=== PATIENT | female | born 1995 | race Two or more races ===

== ENCOUNTER → 2024-08-29 | Outpatient (REF) | payer OTHER | LOC: M PLALAB 09:33 | PROVIDERS: ATTEND Specialist | DX: Z12.4 Encounter for screening for malignant neoplasm of cervix (principal); R87.5 Abnormal microbiological findings in specimens from female genital organs ==

== ENCOUNTER → 2025-03-18 | Outpatient (CLI) | payer OTHER | LOC: M WHC 12:16 | PROVIDERS: ATTEND Advanced Practice Midwife | DX: O20.9 Hemorrhage in early pregnancy, unspecified (principal) ==

== ENCOUNTER → 2025-03-27 | Outpatient (REF) | payer OTHER | LOC: M PLALAB 13:44 | PROVIDERS: ATTEND Nurse Practitioner Family | DX: Z53.9 Procedure and treatment not carried out, unspecified reason (principal) ==

== ENCOUNTER → 2025-05-27 | Outpatient (REF) | payer OTHER ==
[2025-05-27 14:59] LABS: Trichomonas vaginalis (AMP) NOT DETECTED (NEGATIVE)
[2025-05-27 15:23] LABS: GC DNA AMPLIFICATION NEGATIVE (NEGATIVE)
== END ==
LOC: M SFHCWAGY 12:59
PROVIDERS: ATTEND Obstetrics & Gynecology
DX: Z34.92 Encounter for supervision of normal pregnancy, unspecified, second trimester (principal)

== ENCOUNTER → 2025-07-03 | Outpatient (CLI) | payer OTHER | LOC: M RAD 14:34 | PROVIDERS: ATTEND Obstetrics & Gynecology | DX: Z34.82 Encounter for supervision of other normal pregnancy, second trimester (principal); Z3A.21 21 weeks gestation of pregnancy ==

== ENCOUNTER → 2025-08-28 | Outpatient (CLI) | payer OTHER ==
[2025-08-28 14:42] LABS: PLATELET COUNT, AUTOMATED 269 10^3/uL (150-450)
[2025-08-28 16:00] LABS: Trichomonas vaginalis (AMP) NOT DETECTED (NEGATIVE)
[2025-08-28 16:10] LABS: GLUCOSE CHALLENGE TEST 1 HOUR 80 MG/DL (LESS THAN 140)
[2025-08-28 16:23] LABS: GC DNA AMPLIFICATION NEGATIVE (NEGATIVE)
[2025-08-28 16:46] LABS: HIV 1&2 SCREEN NEGATIVE (NEGATIVE)
[2025-08-28 16:53] LABS: HEPATITIS C VIRUS ABY INDEX 0.03 INDEX (<0.8)
== END ==
LOC: M PLALAB 10:49
PROVIDERS: ATTEND Obstetrics & Gynecology
DX: Z34.80 Encounter for supervision of other normal pregnancy, unspecified trimester (principal)

== ENCOUNTER → 2025-10-14 | Outpatient (CLI) | payer OTHER | LOC: M RAD 16:03 | PROVIDERS: ATTEND Nurse Practitioner Family | DX: O40.3XX0 Polyhydramnios, third trimester, not applicable or unspecified (principal); Z3A.37 37 weeks gestation of pregnancy ==

== ENCOUNTER → 2025-10-14 | Outpatient (CLI) | payer OTHER | LOC: M WHC 15:50 | PROVIDERS: ATTEND Nurse Practitioner Family | DX: O40.9XX0 Polyhydramnios, unspecified trimester, not applicable or unspecified (principal); Z53.9 Procedure and treatment not carried out, unspecified reason ==

== ENCOUNTER → 2025-10-14 | Outpatient (REF) | payer OTHER | LOC: M SFHCWAGY 10:27 | PROVIDERS: ATTEND Nurse Practitioner Family | DX: Z34.93 Encounter for supervision of normal pregnancy, unspecified, third trimester (principal); Z3A.36 36 weeks gestation of pregnancy ==

== ENCOUNTER → 2025-10-23 | Outpatient (CLI) | payer OTHER ==
[~2025-10-23] MED LIST: ACET32TAB PO; IBUP600T42 PO; PRENTAB9 PO
== END ==
LOC: M WHC 06:40
PROVIDERS: ATTEND Nurse Practitioner Family
DX: O40.3XX0 Polyhydramnios, third trimester, not applicable or unspecified (principal); Z3A.00 Weeks of gestation of pregnancy not specified

== ENCOUNTER 2025-10-29 18:23 | Inpatient (IN) | payer OTHER ==
[2025-10-29] VITALS (7 sets, daily range): BP systolic 104–125; BP diastolic 55–80
[~2025-10-29] VITALS: Ht 165.1 cm; Wt 97.2 kg
[2025-10-29] MEDS ORDERED: PRENTAB9 PO (18:48)
[2025-10-29] MEDS ORDERED: HOME MED LIST COMPLETE! XX SCH (18:50)
[2025-10-29] MEDS ORDERED: OXYTOCIN DRIP 30 UNITS in IV 1 EA IV PRN (19:40)
[2025-10-29] MEDS ORDERED: LIDOCAINE 1% MDV 20 ML VIAL INFIL PRN (19:40)
[2025-10-29] MEDS: PENICILLIN G POTASSIUM 5 MU IV 5 MU in DEXTROSE 5% (D5W) MINI-BAG PLU 100 ML IV STA (19:54)
[2025-10-29] MEDS: LR 1,000 ML IV SCH (19:54)
[2025-10-29 20:07] LABS: PLATELET COUNT, AUTOMATED 276 10^3/uL (150-450)
[2025-10-29 20:50] LABS: HIV 1&2 SCREEN NEGATIVE (NEGATIVE)
[2025-10-29 20:58] LABS: HEPATITIS C VIRUS ABY INDEX < 0.02 INDEX (<0.8)
[2025-10-29] MEDS: OXYTOCIN DRIP 30 UNITS in IV 1 EA IV SCH (21:13)
[2025-10-30] VITALS (34 sets, daily range): BP systolic 85–229; BP diastolic 54–158; TEMP 97.9; O2SAT 98–99
[2025-10-30] MEDS: PEN G POT 3,000,000 UNIT/50 ML 3,000,000 UNIT in IV 1 EA IV SCH (00:17)
[2025-10-30] MEDS ORDERED: diphenhydrAMINE 50 MG/ML VIAL IV PRN (01:10)
[2025-10-30] MEDS ORDERED: NALOXONE INJ 0.4 MG/1 ML VIAL IV PRN (01:10)
[2025-10-30] MEDS ORDERED: EPIDURAL/PCA KEYS XX PRN (01:10)
[2025-10-30] MEDS: FENTANYL/ROPIVACAINE/NACL BAG 100 ML EPIDURAL SCH (01:17)
[2025-10-30] MEDS: ONDANSETRON 4MG/2ML VIAL IV PRN (03:33)
[2025-10-30] MEDS: LR 500 ML IV PRN (04:31)
[2025-10-30] MEDS ORDERED: ACETAMINOPHEN 325 MG TAB PO PRN (05:05)
[2025-10-30] MEDS ORDERED: DIBUCAINE 1% OINTMENT 30 GM TOP PRN (05:05)
[2025-10-30] MEDS ORDERED: IBUPROFEN 600 MG TAB PO PRN (05:05)
[2025-10-30] MEDS ORDERED: DOCUSATE SODIUM 100 MG CAPSULE PO PRN (05:05)
[2025-10-30] MEDS ORDERED: RHOGAM 300MCG (1500IU) INJ IM SCH (05:05)
[2025-10-30] MEDS ORDERED: METHYLERGONOVINE MALEATE 0.2 MG TAB PO PRN (05:05)
[2025-10-30] MEDS: ACETAMINOPHEN 500 MG TAB PO PRN (05:58)
[2025-10-30] MEDS: PRENATAL VITAMINS CHEWABLE TABLET PO SCH (08:34)
[2025-10-30] MEDS: IBUPROFEN 800 MG TAB PO PRN (12:28)
[2025-10-31 06:03] VITALS: BP 98/62; O2SAT 97
[2025-10-31] MEDS ORDERED: IBUP600T42 PO (09:19)
[2025-10-31] MEDS ORDERED: ACET32TAB PO (09:19)
[2025-11-01] MEDS ORDERED: MEASLES,MUMPS,RUBELLA VACCINE INJ (MMR-II) SC.IMMUN ONE (09:00)
== END 2025-10-31 10:30 | disposition home or self-care (01) | DRG 560 ==
LOC: M LDO 18:23 → M LDI 19:09 → M OBS 10-30 08:01
PROVIDERS: ADMIT Specialist; ATTEND Specialist
PROC: 10E0XZZ Delivery of Products of Conception, External Approach (ICD-10-PCS; principal; 2025-10-30)
DX: O80 Encounter for full-term uncomplicated delivery (principal); Z37.0 Single live birth; Z3A.38 38 weeks gestation of pregnancy; Z11.3 Encounter for screening for infections with a predominantly sexual mode of transmission